=== PATIENT | male | born 1970 | race Caucasian/White ===

== ENCOUNTER 2016-09-23 06:52 | Emergency (ER) | payer MEDICAID, OTHER ==
[~2016-09-23] VITALS: Ht 177.8 cm; Wt 63.6 kg
[2016-09-23 06:54] VITALS: BP 138/85; PULSE 74; RESP 16; O2SAT 98
[2016-09-23] MEDS ORDERED: 0.9% Sodium Chloride 1,000 ML IV ONE (07:21)
[2016-09-23] MEDS ORDERED: Ondansetron 2 mg/mL 2 mL Inj IVPUSH ONE (07:25)
[2016-09-23] MEDS ORDERED: Pantoprazole 4 mg/mL 10 mL Inj IVPUSH ONE (07:25)
[2016-09-23] MEDS ORDERED: Iohexol 300 mg/mL 30 mL Inj PO ONE (07:25)
[2016-09-23 07:54] LABS: BASOPHILS % (AUTO) 0.2 % (0-3); EOSINOPHILS % (AUTO) 0.7 % (0-5); MONOCYTES % (AUTO) 9.3 % (4-12); Mean Corpuscular Hemoglobin 30.8 pg (27.0-35.0); Mean Corpuscular Volume 90.2 fL (81-100); NEUTROPHILS % (AUTO) 73.8 % (40-74); Platelet Count 245 bil/L (150-400)
[2016-09-23] MEDS: HYDROmorphone 0.5 mg/0.5 mL iSecure Syringe IVPUSH PRN ×2 (07:57→08:45)
--- NOTE | 2016-09-23 08:04 | ED.REPORT ---
HPI-Abd Pain M 40 and Over Date of Service Sep 23, 2016 ED Provider: Justo Snow MD The patient is a 46 year old male with history of stomach ulcers and GERD on Prilosec who presents to the emergency department complaining of LLQ abdominal cramping that has been ongoing for the last few months. The pain waxes and wanes. His pain is currently moderate. He has intermittent stabbing pain. He has noticed blood with and without stool over the last 2 weeks. He has also noticed weight loss (15 lbs in the last few weeks), decreased appetite, nausea, diarrhea, and abdominal bloating. His symptoms are worse with food. He denies fever, chills, diaphoresis, vomiting, dizziness or lightheadedness. His last endoscopy was several years ago. He denies abdominal surgeries in the past. He denies history of ulcerative colitis or Crohn's. He denies recent travel out of the country or antibiotic use. Nursing Notes Stated Complaint: ABDOMINAL PAIN Chief Complaint: Male Abdominal Pain Nursing Notes Reviewed: Yes ([employer], [employer] not reconciled) Allergies: Coded Allergies: NSAIDS (Non-Steroidal Anti-Inflamma (Verified Adverse Reaction, Unknown, ulcers, 09/23/16) Scheduled Omeprazole (Omeprazole) 20 Mg Capsule.dr 20 MG PO DAILY Scheduled PRN Ondansetron ODT (Ondansetron ODT) 8 Mg Tab.rapdis 8 MG PO Q4H PRN PRN For Nausea General Time Seen by MD: 06:57 Chief Complaint Abdominal pain Hx Obtained From: Patient Arrived By: Walk-in Sudden in Onset?: No Onset Occurred: More than a week ago... Symptom Duration: Since onset Progression since Onset: Waxes and wanes Location: : Abdomen lower Quality: Cramping, Stabbing Severity: Current: Moderate Severity: Maximum: Severe Recent Healthcare: No recent hospitalization Similar Sx Previous: Yes Past Medical History Past Medical History h/o Peptic Ulcer Disease (last endoscopy many years ago at [facility]) Past Surgical History Multiple extremity orthopedic surgeries Denies abdominal surgery ho hemorrhoid excision Family History Noncontributory Social History Other Social History: Good social support, Local resident Ambulatory Status Independent Review of Systems Constitutional: Reports: Recent wt loss, Denies: Chills, Fever GI: Reports: Abdominal pain, Anorexia, Diarrhea, Hematochezia, Nausea, Denies: Vomiting Male: Denies Dysuria, Denies Hematuria Complete sys rev & neg: except as marked. Skin: Denies Diaphoresis Neurologic: Denies: Dizziness, Lightheaded Physical Exam Initial Vital Signs Vital Signs (First) Date Time Temp Pulse Resp B/P Pulse Ox O2 Delivery O2 Flow Rate FiO2 09/23/16 06:54 36.8 74 16 138/85 98 09/23/16 08:38 Room Air Initial VS: Reviewed, Vital signs normal Head / Eyes: Atraumatic, Normocephalic, PERRL ENT: Mucous membranes moist, Conjunctiva normal, No scleral icterus Neck: Supple, Non-tender, Full range of motion Lymphatic: No lymphadenopathy Extremities: Vascular intact, Neuro intact, No swelling, No tenderness Skin: Warm, Dry, No cyanosis Neurologic: Alert, Oriented, Nonfocal Psychiatric: Mood/affect normal, Behavior normal, Normal thought content General/Constitutional: Awake, Alert, Cooperative Energetic, well-appearing, non-toxic or ill appearing male. Respiratory / Chest: Atraumatic, Breath sounds NL, Breath sounds = bilat, No respiratory distress, No rales, No rhonchi, No wheezing Cardiovascular: Heart rate NL, Regular rhythm, Heart sounds NL, No murmurs, No rubs, Peripheral circulation NL Abdomen: Soft, No guarding, No rebound, BS normoactive, No distention, No hernia, No palpable mass, No pulsatile mass Tenderness/Guarding/Rebound: Positive: Tender periumbilical (trace) Interpretation & Diagnostics Lab Results Interpretation Result Diagram: 09/23/16 0740 09/23/16 0740 Test 09/23/16 07:40 White Blood Count 8.3th/mm3 (3.8-10.1) Red Blood Count 4.68mil/mm3 (4.40-5.80) Hemoglobin 14.4g/dL (13.8-17.2) Hematocrit 42.2% (41.0-50.0) Mean Corpuscular Volume 90.2fL (81-100) Mean Corpuscular Hemoglobin 30.8pg (27.0-35.0) Mean Corpuscular Hemoglobin Concent 34.1% (32.0-37.0) Red Cell Distribution Width 13.1% (12.3-15.4) Platelet Count 245bil/L (150-400) Neutrophils (%) (Auto) 73.8% (40-74) Lymphocytes (%) (Auto) 15.6% (14-46) Monocytes (%) (Auto) 9.3% (4-12) Eosinophils (%) (Auto) 0.7% (0-5) Basophils (%) (Auto) 0.2% (0-3) Erythrocyte Sedimentation Rate 4mm/hr (0-15) Prothrombin Time 10.1sec (8.1-12.5) Prothromb Time International Ratio 0.95ratio Hold Urine Received (Received) Sodium Level 140mEq/L (134-144) Potassium Level 4.0mEq/L (3.5-5.2) Chloride Level 101mEq/L (97-108) Carbon Dioxide Level 25mmol/L (18-29) Blood Urea Nitrogen 12mg/dL (6-24) Creatinine 0.84mg/dL (0.76-1.27) Estimat Glomerular Filtration Rate 105mL/min (>59) Glucose Level 115mg/dL (60-99) Lactic Acid Level 1.8mmol/L (0.4-2.0) Calcium Level 9.5mg/dL (8.5-10.1) Magnesium Level 2.2mg/dL (1.6-2.6) Total Bilirubin 0.4mg/dL (0.0-1.2) Aspartate Amino Transf (AST/SGOT) 30U/L (0-50) Alanine Aminotransferase (ALT/SGPT) 38U/L (0-44) Alkaline Phosphatase 54U/L (25-150) Total Protein 7.6g/dL (6.4-8.4) Albumin 4.6g/dL (3.4-5.0) Lipase 88U/L (13-60) Lab Results Interpretation: CBC normal CMP normal Sedimentation rate normal Lipase marginally elevated, does not meet criteria for pancreatitis Stool studies pending CT Abd / Pelvis Interpretation IMPRESSION: 1. Findings suspicious for a small posterior gastric diverticulum. Upper GI may be helpful to further characterize this finding if clinically indicated. This may be the etiology of the patient's left-sided pain. 2. No other acute intra-abdominal findings. Normal appendix. 3. Wedge compression deformity at T11 and likely similar compression deformity at T10 which are incompletely characterized. No priors are available to determine the acuity of these findings. If further characterization is warranted, MRI of this region without contrast may be helpful to evaluate for marrow edema and determine the acuity of these findings. Dictated by: Ludmila Reyes M.D. on 09/23/2016 at 10:16 Study type: Abdominal CT IV contrast, Abdom CT oral contrast Interpretation / Wet Read by: Interpret - Radiologist Re-Eval/Medical Decision Med Decision/Clinical Course This is a 46-year-old male presents with 2 weeks of generalized abdominal pain, cramping, diarrhea, and blood mixed with stools. Symptoms have been persisting , he says he has had a little bit of weight loss with this but is still eating and drinking. Indicates his call his PCP is advised to come to the ED. He denies fevers chills, denies any known infectious exposures, denies any suspicious food ingestions, denies travel history. He does have a distant history of peptic disease with endoscopy many years ago at [facility], and he still gets frequent dyspepsia for which he takes a PPI intermittently. He is not on any antibiotics. He has no additional complaints. On exam he has normal vitals and is clinically well-appearing He has mild abdominal tenderness without guarding or rebound or clinical signs of peritonitis. He has no signs of pallor, no overt clinically apparent signs of severe anemia. Labwork was obtained and was entirely normal. CT scan was obtained and was also negative clear acute pathology to explain the symptoms. Stool studies are pending. At this point a dangerous etiology is not been identified. Patient denies prior history of known inflammatory bowel disease which is in the differential. Workers are negative at this time. He has no overt radiographic findings of colitis, although CT imaging has limited some sensitivity/specificity. At this point I think discharge is warranted, the patient is to call for follow-up of the results of the stool studies-and I have recommended GI follow-up if symptoms persist and provided referral information to call for an appointment with Dr. Green. Return precautions are reviewed. Discharge instructions reviewed. I have gone ahead and written a prescription for PPI as the patient' s not sure he has more, although I am not finding evidence that his presentation , his abdominal pain, with a GI bleeding that he is describing would be from an upper GI bleed if associated with massive bleeding-and that after several weeks of symptoms the patient appears completely well, has no anemia, and no other findings-but I think treating and managing his dyspepsia remains reasonable as well. he was discharged clinically well-appearing and in good condition. Source of Hx: Old records Time of Eval: 11:21 Re-Evaluation/Progress Note: Rechecked the patient. Discussed results, diagnosis, and plan for discharge. All questions were addressed. Differential Diagnosis: Positive: Acute abdominal pain, Diarrhea, Dyspepsia ( chronic, unchanged), Negative: Abdominal aortic aneurysm, Abscess, Appendicitis, Bladder outlet obstruct, Bowel obstruction, Cellulitis, Cholangitis, Cholecystitis, Esophageal rupture, Esophagitis, Gun shot wound abdomen, Inguinal hernia, Myocardial infarction, Pancreatitis, Peritonitis, Stab wound abdomen, Trauma, abdominal, Volvulus Counseled Regarding: Diagnosis, Lab results, Need for follow-up, When/why to return to ED Discharge & Departure Primary Impression: Abdominal pain Abdominal location: generalized Qualified Code: R10.84 - Generalized abdominal pain Additional Impressions: Diarrhea Rectal bleeding Disposition: Home Vital Signs - All Vital Signs Date Time Temp Pulse Resp B/P Pulse Ox O2 Delivery O2 Flow Rate FiO2 09/23/16 12:36 36.8 70 18 134/6 99 Room Air 09/23/16 08:38 70 18 134/6 99 Room Air 09/23/16 06:54 36.8 74 16 138/85 98 )( All Prior VS Reviewed: Yes Condition: Stable Additional Instructions: 1. Your blood tests and CT scan did not reveal a dangerous cause of the pain and bleeding. (Your blood counts were normal). 2. In most cases symptoms of this nature due resolve with time. You may have a mild case of colitis - an inflammation of the intestine. Your ED tests did mamadou reveal any markers of a bacterial infection that would clearly benefit from antibiotics, so they are not recommended at this time. However, your stool tests will take 1-2 days for results - call [phone] for results. 3. The next step is calling for an appointment with a corrections lieutenant. Call Dr. Calhoun's today to schedule an appointment in several weeks - if symptoms are not improving you may need a colonoscopy. 4. Take your omeprazole or prevacid daily. 5. Take tylenol (acetomeniphen) up to 1000mg three times a day for pain if needed. 6. Take ondansetron 8mg (let dissolve under the tongue) up to every 4 hours IF needed for nausea. 7. Return if new or worsening symptoms. Referrals: Carroll Sahni MD (PCP) Ami Attestation Portions of this note were transcribed by Rosalee Coffey. I, Dr. Snow personally performed the history, physical exam and medical decision-making; I reviewed and confirmed the accuracy of the information in the transcribed note. Signed by: Ami Yuan, 09/23/2016 and 1130. copies to: Carroll Sahni MD, Matthew F MD Sep 23, 2016 08:04 Rosalee Coffey Sep 23, 2016 08:09
[2016-09-23 08:08] LABS: INR 0.95 ratio
[2016-09-23 08:15] LABS: Magnesium 2.2 mg/dL (1.6-2.6)
[2016-09-23 08:38] VITALS: BP 134/6; PULSE 70; RESP 18; O2SAT 99
--- NOTE | 2016-09-23 10:28 | DRSVH ---
PROCEDURE: CT ABDOMEN AND PELVIS WITH CONTRAST ([id number]) INDICATIONS: ABd pain, wt loss, bleeding TECHNIQUE: After the administration of oral and intravenous contrast, 5 mm thick sections acquired from the diap hragms to the symphysis. 5 mm thick coronal and sagittal reformats were performed. For radiation do se reduction, the following was used: automated exposure control, adjustment of mA and/or kV accordi ng to patient size. COMPARISON: None. FINDINGS: Image quality: Excellent. ABDOMEN: Lung bases: Lung bases are clear. Heart size is normal. Solid organs: Liver and spleen are normal in size and enhancement. Gallbladder is unremarkable. Bi liary system is non-dilated. Pancreas enhances normally. No adrenal nodules. Kidneys are normal in size and enhancement, without hydronephrosis. Peritoneum and bowel: Overall, the stomach is decompressed. There is a 3 cm in diameter the pitt, co ntrast and gas filled posterior gastric diverticulum (series 2, image 15). The small bowel and and co beverly loops are normal in caliber and wall thickness. The appendix is thin-walled and contrast-filled. No free fluid or air. Nodes and vessels: No retroperitoneal or mesenteric adenopathy. Aorta and inferior vena cava are no rmal in caliber. Miscellaneous: No ventral hernias. PELVIS: Genitourinary: Bladder wall thickness is normal. Miscellaneous: No inguinal adenopathy. There is small bilateral fat-containing inguinal hernias. Bones: No suspicious bony lesions. There is a severe T11 superior endplate compression deformity wit h approximately 50% vertebral body height loss. There is likely a similar compression deformity at T1 0 which is incompletely characterized. IMPRESSION: 1. Findings suspicious for a small posterior gastric diverticulum. Upper GI may be helpful to further characterize this finding if clinically indicated. This may be the etiology of the patient's left-si ded pain. 2. No other acute intra-abdominal findings. Normal appendix. 3. Wedge compression deformity at T11 and likely similar compression deformity at T10 which are incom pletely characterized. No priors are available to determine the acuity of these findings. If further characterization is warranted, MRI of this region without contrast may be helpful to evaluate for mar row edema and determine the acuity of these findings. Dictated by: Ludmila Reyes M.D. on 09/23/2016 at 10:16 Approved by: Ludmila Reyes M.D. on 09/23/2016 at 10:27
[2016-09-23] MEDS ORDERED: ONDA8TAB10 PO (11:19)
[2016-09-23] MEDS ORDERED: OMEP20CA11 PO (12:00)
[2016-09-23 12:36] VITALS: BP 134/6; PULSE 70; RESP 18; O2SAT 99
== END 2016-09-23 12:37 | disposition home or self-care (01) ==
LOC: SED 06:52
DX: R10.84 Generalized abdominal pain (principal); R19.7 Diarrhea, unspecified; K62.5 Hemorrhage of anus and rectum; K21.9 Gastro-esophageal reflux disease without esophagitis; Z87.11 Personal history of peptic ulcer disease; Z88.8 Allergy status to other drugs, medicaments and biological substances
CPT/HCPCS: 36415; 74177; 80053; 83605; 83690; 83735; 85025; 85610; 85651; 87507; 96361; 96374; 96375; 96376; 99285; J1170; J2405; J7030; Q9967